=== PATIENT | female | born 1995 | race Caucasian/White ===

== ENCOUNTER 2018-05-26 20:14 | Emergency (ER) | payer MEDICAID ==
[~2018-05-26] VITALS: Ht 157.5 cm; Wt 61.2 kg
[2018-05-26 20:23] VITALS: BP 113/65
--- NOTE | 2018-05-26 20:25 | NUR ---
PT AMBULATORY TO ER LOBBY IN STABLE CONDITION.
--- NOTE | 2018-05-26 21:14 | NUR ---
PT AMBULATED TO ER BED 01
--- NOTE | 2018-05-26 21:20 | NUR ---
PT PRESENTED ER WITH C/O PAIN TO THE THROAT X 1 DAY. PT STATES THAT IT IS SORE AND PAINFUL TO SWALLOW. PAIN LEVEL IS 8/10 AT THIS TIME. PT STATED SHE HAS A COUGH. NKA AND NO PREVIOUS MEDICAL HX. A/O X 4. STEADY GAIT. LUNGS SOUNDS CLEAR BILATERAL. VSS; PATIENT POSITIONED FOR COMFORT; HOB ELEVATED; BEDRAILS UP X2; BED DOWN. ER MD MADE AWARE OF PT STATUS.
--- NOTE | 2018-05-26 21:25 | NUR ---
CAME IN WITH C/O SORETHROAT SINCE LAST NIGHT, AND COUGH FOR 3 WEEKS.
--- NOTE | 2018-05-26 22:50 | NUR ---
Patient being evaluated by physician at bedside.
[2018-05-26 22:55] VITALS: BP 125/71
--- NOTE | 2018-05-26 22:55 | NUR ---
Patient discharged with v/s stable. Written and verbal after care instructions given and explained BY DR GOMEZ. Patient alert, oriented and verbalized understanding of instructions. Ambulatory with steady gait. All questions addressed prior to discharge. ID band removed. Patient advised to follow up with PMD. Rx of AUGMEMTIN 500MG, given. Patient educated on indication of medication including possible reaction and side effects. Opportunity to ask questions provided and answered.
== END 2018-05-26 22:55 | disposition home or self-care (01) ==
LOC: MED 20:14
DX: J03.90 Acute tonsillitis, unspecified (principal)
CPT/HCPCS: 99283

== ENCOUNTER 2018-09-13 20:43 | Emergency (ER) | payer SELFPAY ==
[~2018-09-13] VITALS: Ht 157.5 cm; Wt 61.5 kg
[2018-09-13 20:51] VITALS: BP 119/69
--- NOTE | 2018-09-13 20:53 | NUR ---
PT AMBULATED TO BED 9
--- NOTE | 2018-09-13 20:59 | NUR ---
PT PRESENTS TO ED WITH C/O SORE THROAT X 1 WEEK. PT DENIES N/V/D. DENIES FEVER. DENIES CP/SOB. PT IS ABLE TO SPEAK IN CLEAR SENTENCES WITHOUT DIFFICULTY. PT PLACED INTO BED, PENDING MD LYNN. PMH--DENIES RX--DENIES
--- NOTE | 2018-09-13 21:21 | NUR ---
ER AT BEDSIDE
[2018-09-13] MEDS ORDERED: KETOROLAC 30 MG/ML VIAL IM ONE (21:30)
[2018-09-13] MEDS ORDERED: DEXAMETHASONE 10 MG/ML VIAL PO ONE (21:30)
--- NOTE | 2018-09-13 21:54 | NUR ---
Patient discharged with v/s stable. Written and verbal after care instructions given and explained. Patient alert, oriented and verbalized understanding of instructions. Ambulatory with steady gait. All questions addressed prior to discharge. ID band removed. Patient advised to follow up with PMD. Rx of AUGMENTIN, TYLENOL, NAPROSYN given. Patient educated on indication of medication including possible reaction and side effects. Opportunity to ask questions provided and answered.
[2018-09-13 21:55] VITALS: BP 121/71
== END 2018-09-13 21:55 | disposition home or self-care (01) ==
LOC: MED 20:43
DX: J02.9 Acute pharyngitis, unspecified (principal)
CPT/HCPCS: 87081; 96372; 99283; J1100; J1885

== ENCOUNTER 2019-01-01 20:32 | Emergency (ER) | payer SELFPAY ==
[~2019-01-01] VITALS: Ht 162.6 cm; Wt 61.2 kg
[2019-01-01 20:36] VITALS: BP 121/75
--- NOTE | 2019-01-01 20:38 | NUR ---
TO LOBBY A/W BED, AMBULATORY, VSS
--- NOTE | 2019-01-01 21:06 | NUR ---
PT AMBULATED TO ER BED 3
--- NOTE | 2019-01-01 21:25 | NUR ---
BIB SELF FOR RLQ PAIN STARTING THIS AM. WORSE PAIN ON PALPATION. NO N/V/D. NO VAGINAL BLEEDING. ABD IS ROUND, SOFT, TENDER TO AFFECTED AREA. PT IS AWAKE AND LAYING IN BED, POSITIONED TO COMFORT.
[2019-01-01 22:00] VITALS: BP 118/74
== END 2019-01-01 22:00 | disposition home or self-care (01) ==
LOC: MED 20:32
DX: S39.011A Strain of muscle, fascia and tendon of abdomen, initial encounter (principal); R03.0 Elevated blood-pressure reading, without diagnosis of hypertension; X58.XXXA Exposure to other specified factors, initial encounter; Y93.01 Activity, walking, marching and hiking; Y92.89 Other specified places as the place of occurrence of the external cause; Y99.8 Other external cause status
CPT/HCPCS: 72170; 81002; 81025; 99283